=== PATIENT | female | born 2000 | race Caucasian/White ===

== ENCOUNTER 2018-11-01 13:41 | Outpatient (REF) | payer OTHER, SELFPAY ==
[2018-11-02 13:38] LABS: Chlamydia Result Negative; GC Result Negative; Specimen Description CERVIX
== END 2018-11-01 14:01 ==
LOC: LBN 13:41
PROVIDERS: PCP Pediatrics; Visit Provider Nurse Practitioner Women's Health
DX: Z11.3 Encounter for screening for infections with a predominantly sexual mode of transmission (principal)
CPT/HCPCS: 87491; 87591

== ENCOUNTER 2019-11-16 12:40 | Outpatient (REF) | payer OTHER, SELFPAY ==
--- NOTE | 2019-11-16 09:20 | PAPFT_PTH ---
PATIENT: Idalia Lundberg LOC: [facility] U#:[id number] AGE/SX: 19/F ROOM: RE11/16/[address]: SHAYNE Johnson : 2000 BED: DIS: 11/16/2019 SPEC #: [id number] RECD: 11/16/19 12:53 STATUS: STEPHAN REBobby #: [id number] WINNIE: 11/16/19 09:[address]: Krissy Montesinos DEPT: [facility] Cytology RECD BY: Maria Alejandra Coffey Tissues: 1 - CX/ENDOCX FOR PAP SMEARS Procedures: PAP THIN PREP/[facility] Screening HPV DNA PROBE Comments: [id number]
== END 2019-11-16 13:00 ==
LOC: LBN 12:40
PROVIDERS: PCP Nurse Practitioner Family; Visit Provider Nurse Practitioner Family
DX: Z12.4 Encounter for screening for malignant neoplasm of cervix (principal)
CPT/HCPCS: 88142; 87624

== ENCOUNTER 2021-02-18 03:33 | Outpatient (CLI) | payer OTHER, SELFPAY ==
[2021-02-18 12:59] LABS: Hemoglobin A1C 4.9 % (<5.7)
[2021-02-18 13:13] LABS: Anion Gap 9.3 mmol/L (3-11); BUN 11 mg/dL (7-18); CO2 27.7 mmol/L (21.0-32.0); CREATININE 0.8 mg/dL (0.55-1.02); Calcium 9.1 mg/dL (8.5-10.1); Calculated LDL 130 mg/dL (<100); Chloride 104 mmol/L (98-107); Cholesterol 201 mg/dL (<200); Glucose 79 mg/dL (74-106); HDL Cholesterol 55 mg/dL (40-60); Potassium 4.2 mmol/L (3.5-5.1); Sodium 141 mmol/L (136-145); Triglyceride 84 mg/dL (<150)
[2021-02-18 13:34] LABS: FREE T4 1.04 ng/dL (0.76-1.46)
== END 2021-02-18 03:34 | disposition home or self-care (01) ==
PROVIDERS: PCP Nurse Practitioner Family; Visit Provider Nurse Practitioner Family
DX: Z00.00 Encounter for general adult medical examination without abnormal findings (principal); E66.9 Obesity, unspecified
CPT/HCPCS: 36415; 80048; 80061; 83036; 84439; 84443

== ENCOUNTER 2021-06-05 09:28 | Outpatient (REF) | payer OTHER, SELFPAY ==
--- NOTE | 2021-06-05 09:15 | PAPFT_PTH ---
PATIENT: Idalia Lundberg LOC: [facility] U#:[id number] AGE/SX: 20/F ROOM: RE06/05/[address]: SHAYNE Johnson : 2000 BED: DIS: 06/05/2021 SPEC #: [id number] RECD: 06/05/21 13:04 STATUS: STEPHAN REBobby #: [id number] WINNIE: 06/05/21 09:[address]: Krissy Montesinos DEPT: [facility] Cytology RECD BY: Maria Alejandra Coffey Tissues: 1 - CX/ENDOCX FOR PAP SMEARS Procedures: PAP THIN PREP/[facility] Screening Comments: [id number]
== END 2021-06-05 09:29 | disposition home or self-care (01) ==
LOC: LBN 09:28
PROVIDERS: PCP Nurse Practitioner Family; Visit Provider Nurse Practitioner Family
DX: Z12.4 Encounter for screening for malignant neoplasm of cervix (principal)
CPT/HCPCS: 88142

== ENCOUNTER 2022-08-16 12:42 | Outpatient (REF) | payer OTHER, SELFPAY ==
--- NOTE | 2022-08-16 08:50 | PAPFT_PTH ---
PATIENT: Idalia Lundberg LOC: [facility] U#:[id number] AGE/SX: 21/F ROOM: RE08/16/[address]: SHAYNE Johnson : 2000 BED: DIS: 08/16/2022 SPEC #: [id number] RECD: 08/16/22 12:56 STATUS: STEPHAN REQ #: [id number] WINNIE: 08/16/22 08:[address]: Krissy Montesinos DEPT: [facility] Cytology RECD BY: Maria Alejandra Coffey Tissues: 1 - CX/ENDOCX FOR PAP SMEARS Procedures: PAP THIN PREP/[facility] Screening Comments: [id number] (CHLAMYDIA/GC)
[2022-08-17 14:23] LABS: Chlamydia Result Negative (Negative); GC Result Negative (Negative)
[2022-08-18 12:04] LABS: COVID-19 RT-PCR UVMMC Result Negative (Negative)
== END 2022-08-16 12:43 | disposition home or self-care (01) ==
LOC: LBN 12:42
PROVIDERS: PCP Nurse Practitioner Family; Visit Provider Nurse Practitioner Family
DX: Z11.3 Encounter for screening for infections with a predominantly sexual mode of transmission (principal); Z12.4 Encounter for screening for malignant neoplasm of cervix; J02.9 Acute pharyngitis, unspecified; R19.7 Diarrhea, unspecified; Z20.822 Contact with and (suspected) exposure to COVID-19; K52.9 Noninfective gastroenteritis and colitis, unspecified
CPT/HCPCS: 87491; 87591; 88142; U0003

== ENCOUNTER 2025-08-08 10:42 | Outpatient (CLI) | payer MEDICAID, SELFPAY ==
[2025-08-08 14:18] LABS: Hemoglobin A1C 5.1 % (<5.7)
[2025-08-08 14:27] LABS: Anion Gap 7.9 mmol/L (3-11); BUN 14 mg/dL (7-18); CO2 27.1 mmol/L (21.0-32.0); Calcium 9.2 mg/dL (8.5-10.1); Calculated LDL 156 mg/dL (<100); Chloride 102 mmol/L (98-107); Cholesterol 231 mg/dL (<200); Estimated GFR 104.15 (mL/min/1.73m2); Glucose 95 mg/dL (74-106); HDL Cholesterol 49 mg/dL (>or=50); Potassium 3.8 mmol/L (3.5-5.1); Sodium 137 mmol/L (136-145); TSH (W/Ref FT4) 1.42 uIU/mL (0.36-3.74); Triglyceride 133 mg/dL (<150)
[2025-08-08 23:13] LABS: HIV-1/2 Ag & Ab Screen Negative (Negative)
[2025-08-08 23:16] LABS: HBs Antibody, Quant <3.1 mIU/mL (See Note); Hepatitis B Surface Antigen Negative (Negative)
[2025-08-08 23:18] LABS: Hepatitis C Ab w Rflx HCV PCR Negative (Negative)
== END 2025-08-08 10:43 | disposition home or self-care (01) ==
LOC: LOS 10:42
PROVIDERS: PCP Nurse Practitioner Family; Visit Provider Nurse Practitioner Family
DX: E78.5 Hyperlipidemia, unspecified (principal); E28.2 Polycystic ovarian syndrome; Z11.4 Encounter for screening for human immunodeficiency virus [HIV]; Z11.59 Encounter for screening for other viral diseases
CPT/HCPCS: 36415; 80048; 80061; 84403; 86704; 86706; 86803; 87340; 87389; 83036; 84443

== ENCOUNTER 2025-08-08 11:05 | Outpatient (REF) | payer MEDICAID, SELFPAY ==
--- NOTE | 2025-08-08 10:15 | PAPFT_PTH ---
PATIENT: Idalia Lundberg LOC: [facility] U#:[id number] AGE/SX: 24/F ROOM: RE08/08/[address]: SHAYNE Johnson : 2000 BED: DIS: 08/08/2025 SPEC #: [id number] RECD: 08/08/25 18:17 STATUS: STEPHAN REBobby #: [id number] WINNIE: 08/08/25 10:[address]: Krissy Montesinos DEPT: [facility] Cytology RECD BY: Maria Alejandra Coffey Tissues: 1 - CX/ENDOCX FOR PAP SMEARS Procedures: PAP THIN PREP/[facility] Screening Comments: [id number] (CHLAMYDIA/GC)
[2025-08-09 12:19] LABS: Chlamydia Result Negative (Negative); GC Result Negative (Negative)
== END 2025-08-08 11:06 | disposition home or self-care (01) ==
LOC: LBN 11:05
PROVIDERS: PCP Nurse Practitioner Family; Visit Provider Nurse Practitioner Family
DX: Z12.4 Encounter for screening for malignant neoplasm of cervix (principal)
CPT/HCPCS: 87491; 87591; 88142

== ENCOUNTER → 2025-08-29 02:13 | Outpatient (CLI) | payer MEDICAID, SELFPAY ==
--- NOTE | 2025-08-29 07:30 | DI.US_ITS ---
Exam(s) US PELVIS TRANSVAGINAL EXAM: US PELVIS TRANSVAGINAL CLINICAL HISTORY: Suspected PCOS,e28.2 TECHNIQUE: Ultrasound of the pelvis was performed both transabdominal and transvaginal. COMPARISON: No exams were available for comparison FINDINGS: UTERUS: Nongravid and anteverted Measures 6.7 cm length x 3.1 cm AP x 3.4 cm wide. There are no uterine fibroids. Endometrial thickness measures 3.7 mm. There is no fluid in the endometrial canal. CERVIX: There are no obvious nabothian cysts. RIGHT OVARY: Measures 3 x 2.7 x 3.4 cm Contains multiple sub cm follicular cysts. LEFT OVARY: Measures 3 x 2.4 x 3.5 cm Contains multiple sub cm follicular cysts. Also a 2.0 x 1.5 cm follicular cyst. CUL-DE-SAC: No free fluid evident. IMPRESSION: 1. Normal appearing uterus and age-appropriate endometrium. 2. Multiple sub cm follicular cysts in both ovaries. Largest simple cyst is in the left ovary, measuring 2 x 1.5 cm. There are no hemorrhagic cysts nor solid lesions evident. 3. No free fluid evident in the adnexal regions and cul-de-sac. DATA REPOSITORY:
== END ==
LOC: DI 02:13
PROVIDERS: PCP Nurse Practitioner Family; Visit Provider Nurse Practitioner Family
DX: E28.2 Polycystic ovarian syndrome (principal)
CPT/HCPCS: 76830; 76856

== ENCOUNTER 2025-09-12 11:33 | Outpatient (CLI) | payer MEDICAID, SELFPAY ==
[2025-09-20 19:31] LABS: Testosterone, Free 3.7 pg/mL (0.1-6.4)
== END 2025-09-12 11:34 | disposition home or self-care (01) ==
LOC: LBO 11:33
PROVIDERS: PCP Nurse Practitioner Family; Visit Provider Obstetrics & Gynecology
DX: L68.0 Hirsutism (principal)
CPT/HCPCS: 36415; 84402; 84403